=== PATIENT | male | born 1980 | race Caucasian/White ===

== ENCOUNTER 2017-02-07 22:25 | Emergency (ER) | payer OTHER ==
[~2017-02-07] VITALS: Ht 177.8 cm; Wt 70.0 kg
[2017-02-07 22:28] VITALS: BP 132/77; PULSE 96; RESP 15; TEMP 98.1; O2SAT 98
[2017-02-07] MEDS ORDERED: ACETAMINOPHEN/HYDROcodone 325 MG/5 MG TAB PO ONE (23:15)
[2017-02-07] MEDS ORDERED: CEPHALEXIN MONOHYDRATE 500 MG CAP PO ONE (23:15)
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
== END 2017-02-08 00:27 | disposition home or self-care (01) ==
LOC: NEPD 22:25
DX: S60.512A Abrasion of left hand, initial encounter (principal); S80.811A Abrasion, right lower leg, initial encounter; V29.00XA Motorcycle driver injured in collision with unspecified motor vehicles in nontraffic accident, initial encounter
CPT/HCPCS: 73120; 99283